=== PATIENT | male | born 1990 | race Caucasian/White ===

== ENCOUNTER 2020-04-23 08:08 | Day surgery (SDC) | payer OTHER, SELFPAY ==
[2020-04-21 08:36] VITALS: BMI 22.1
[2020-04-23 08:28] VITALS: BP 106/98; PULSE 55; RESP 18; TEMP 36.8; O2SAT 98
[2020-04-23] MEDS: sodium chloride 0.9% 1,000 ML 30 ML IV (08:40)
--- NOTE | 2020-04-23 09:24 | ANES.PREANE2 ---
Pre-Anesthetic Assessment Pre-Anesthetic Assessment: Height/Weight: Height 1.73 m Weight 66.224 kg Temp Pulse Resp BP Pulse Ox 98.3 F 55 L 18 106/98 98 04/23/20 08:28 04/23/20 08:28 04/23/20 08:28 04/23/20 08:28 04/23/20 08:28 Preop Diagnosis: Familial colon polyposis Proposed Procedure: Operation Date: 04/23/20 09:30 Proposed Procedures p Sigmoidoscopy/flex 21307 D12.6(Not Applicable) - Chi Agustin MD Last intake: Intake Last Liquid Date 04/22/20 Last Liquid Time 21:00 Last Solid Date 04/21/20 Social: Social History: Tobacco and No alcohol Exam: Pre-Anes Outpt Exam: alert, oriented x 3, clear to auscultation bilaterally and regular rate & rhythm Airway: Submandibular: WNL Cervical ROM: WNL MP: 2 Dentition: Other (poor dentation, tongue ring) History/ROS: No significant history except as noted Pulmonary: Pulmonary: Asthma (mild) CV/HEM: CV/HEM: None reported : : None reported Hepatic: Hepatic: None reported GI: GI: None reported Metabolic: Metabolic: None reported Musc/skel: Musc/skel: OA/DJD Neuropsych: Neuropsych: None reported Anesthetic Plan: ASA status: 2 Anesthesia: Anesthesia Evaluation and MAC Risk of > 500 ml blood loss (7ml/kg in children): No Meds/Allergies Current Medications: Current Medications Generic Name Dose Route Start Last Admin Trade Name Freq PRN Reason Stop Dose Admin Sodium Chloride 1,000 mls @ 30 ml s/hr 04/23/20 08:30 04/23/20 08:40 Sodium Chloride 0.9% IV 30 mls/hr .Q24H RISHI Administration PFSH Anesthesia PFSH: Medical History Asthma Familial polyposis Genital warts History of colon polyps Surgical History H/O colonoscopy History of knee surgery Family History Other Polyposis of colon Denies family history of Anesthesia complication Bleeding disorder Social History Smoking and tobacco status: current every day smoker Alcohol intake: never Data Anesthesia Cardiac Studies: No Data to Display
--- NOTE | 2020-04-23 09:27 | W.PM.OPSUD ---
Surgery/Procedure H&P Update DATE OF PROCEDURE: April 23, 2020 DATE H&P PERFORMED: 04/09/20 H&P UPDATE INFORMATION: I have reviewed H&P completed within last 30 days, I have examined patient prior to procedure and No changes to prior documentation PREOP DIAGNOSIS: Familial colon polyposis PRIMARY INDICATION FOR PROCEDURE: The same PLANNED PROCEDURE: Operation Date: 04/23/20 09:30 Proposed Procedures p Sigmoidoscopy/flex 20736 D12.6(Not Applicable) - Chi Agustin MD
[2020-04-23 10:13] VITALS: BP 108/66; PULSE 57; RESP 16; TEMP 36.5; O2SAT 97
[2020-04-23 10:28] VITALS: BP 119/69; PULSE 58; RESP 16; TEMP 36.6; O2SAT 98
== END 2020-04-23 10:50 | disposition home or self-care (01) ==
PROVIDERS: PCP Family Medicine; Visit Provider Surgery
PROC: 0DJD8ZZ Inspection of Lower Intestinal Tract, Via Natural or Artificial Opening Endoscopic (ICD-10-PCS; CPT 45330; principal; 2020-04-23 09:30)
DX: Z12.11 Encounter for screening for malignant neoplasm of colon (principal); Z86.010 Personal history of colon polyps; D12.8 Benign neoplasm of rectum; Z79.891 Long term (current) use of opiate analgesic; J45.909 Unspecified asthma, uncomplicated; B07.9 Viral wart, unspecified; F17.210 Nicotine dependence, cigarettes, uncomplicated; M19.90 Unspecified osteoarthritis, unspecified site
CPT/HCPCS: 12345; 45338; 88305; J2704; J7030

== ENCOUNTER 2020-12-15 06:21 | Day surgery (SDC) | payer OTHER, SELFPAY ==
[2020-12-11 13:31] VITALS: BMI 22.0
--- NOTE | 2020-12-15 06:38 | ANES.PREANE2 ---
Pre-Anesthetic Assessment Pre-Anesthetic Assessment: Height/Weight: Height 1.73 m Weight 65.771 kg Preop Diagnosis: Familial colon polyposis Proposed Procedure: Operation Date: 12/15/20 07:45 Proposed Procedures p Flexible Sigmoidoscopy 52433 Z86.010(Not Applicable) - Chi Agustin MD Familial anesthetic complications: None Last intake: NPO 8 hrs Social: Social History: Tobacco and No alcohol Exam: Pre-Anes Outpt Exam: alert, oriented x 3, clear to auscultation bilaterally and regular rate & rhythm Airway: Cervical ROM: WNL MP: 2 Dentition: Chipped and Loose Additional comments: Poor dentition Pulmonary: Pulmonary: Asthma Anesthetic Plan: ASA status: 2 Anesthesia: MAC Risk of > 500 ml blood loss (7ml/kg in children): No PFSH Anesthesia PFSH: Medical History Asthma Familial polyposis Genital warts History of colon polyps Surgical History H/O colonoscopy History of knee surgery Family History Other Polyposis of colon Denies family history of Anesthesia complication Bleeding disorder Social History Smoking and tobacco status: current every day smoker Alcohol intake: never Household members: spouse Marital status: History of recent travel: No Data Anesthesia Cardiac Studies: No Data to Display
[2020-12-15 07:10] VITALS: BP 101/65; PULSE 69; RESP 18; TEMP 36.3; O2SAT 98
[2020-12-15] MEDS: sodium chloride 0.9% 1,000 ML 30 ML IV (07:28)
--- NOTE | 2020-12-15 07:28 | W.PM.OPSUD ---
Surgery/Procedure H&P Update DATE OF PROCEDURE: December 15, 2020 DATE H&P PERFORMED: 12/03/20 H&P UPDATE INFORMATION: I have reviewed H&P completed within last 30 days, I have examined patient prior to procedure and No changes to prior documentation PREOP DIAGNOSIS: Familial polyposis PRIMARY INDICATION FOR PROCEDURE: The same PLANNED PROCEDURE: Operation Date: 12/15/20 07:45 Proposed Procedures p Flexible Sigmoidoscopy 91230 Z86.010(Not Applicable) - Chi Agustin MD
[2020-12-15 08:41] VITALS: BP 109/69; PULSE 63; RESP 18; O2SAT 100
--- NOTE | 2020-12-15 18:56 | ANE.PACU2 ---
Inpatient post-anesthesia follow up: Airway intact: Yes Vital signs: Temperature 97.3 F Pulse Rate 63 Respiratory Rate 18 Blood Pressure 109/69 Pulse Oximetry 100 Oxygen Delivery Me thod Room Air Oxygen Flow Rate Fraction of Inspir ed Oxygen Hydration adequate: Yes Nausea and vomiting: No Pain level: 1 Mental status: Baseline
== END 2020-12-15 08:51 | disposition home or self-care (01) ==
PROVIDERS: PCP Family Medicine; Visit Provider Surgery
PROC: 0DJD8ZZ Inspection of Lower Intestinal Tract, Via Natural or Artificial Opening Endoscopic (ICD-10-PCS; CPT 45330; principal; 2020-12-15 07:45)
DX: Z86.010 Personal history of colon polyps (principal); D12.8 Benign neoplasm of rectum; J45.909 Unspecified asthma, uncomplicated; F17.210 Nicotine dependence, cigarettes, uncomplicated
CPT/HCPCS: 45331; 88305; 96360; J2704; J7030

== ENCOUNTER 2023-01-16 13:46 | Emergency (ER) | payer SELFPAY ==
[2023-01-16 14:04] VITALS: BP 118/71; PULSE 75; TEMP 36.3; O2SAT 99; BMI 22.0
[2023-01-16 14:36] LABS: Urine Appearance Clear (CLEAR); Urine Color Dark Yellow (Yellow)
[2023-01-16 14:37] LABS: Protein Urine Neg (Negative); Specific Gravity, Urine 1.025 (1.005-1.030); pH Urine 5 (5-7)
[2023-01-16 14:38] LABS: Add Urine Culture? No; Add Urine Microscopic? YES; Bacteria Urine TRACE /hpf; Bilirubin Urine Neg (Negative); Blood Urine 2+ (Negative); Glucose Urine UA Norm (Normal); Ketones Urine Negative (Negative); Leukocyte Esterase Urine Negative (Negative); Mucus Urine 2+ /hpf; Nitrate Urine Negative (Negative); Urobilinogen Urine 1 mg/dL (Negative); WBC Urine RARE /hpf (0-5)
--- NOTE | 2023-01-16 14:41 | CTR_ITS ---
PROCEDURE INFORMATION: Exam: CT Abdomen And Pelvis Without Contrast Exam date and time: 01/16/2023 2:57 PM Age: 32 years old Clinical indication: Other: Low back pain; Prior surgery; Surgery type: Colectomy; Additional info: Flank pain TECHNIQUE: Imaging protocol: Computed tomography of the abdomen and pelvis without contrast. Radiation optimization: All CT scans at this facility use at least one of these dose optimization techniques: automated exposure control; mA and/or kV adjustment per patient size (includes targeted exams where dose is matched to clinical indication); or iterative reconstruction. REPORTING DATA: Count of CT and Cardiac NM exams in prior 12 months: This patient has received 0 known CTs and 0 known cardiac nuclear medicine studies in the 12 months prior to the current study. COMPARISON: ES surgery / GI images 02/27/2018 5:45 AM RADIATION DOSE METRICS: Total DLP (mGy-cm): 372.73 FINDINGS: Liver: Normal. No mass. Gallbladder and bile ducts: Normal. No calcified stones. No ductal dilation. Pancreas: Normal. No ductal dilation. Spleen: Normal. No splenomegaly. Adrenal glands: Normal. No mass. Kidneys and ureters: No renal stones. No hydronephrosis. Stomach and bowel: Colectomy changes. No obstruction. No mucosal thickening. Appendix: No evidence of appendicitis. Intraperitoneal space: Unremarkable. No free air. No significant fluid collection. Vasculature: Unremarkable. No abdominal aortic aneurysm. Lymph nodes: Unremarkable. No enlarged lymph nodes. Urinary bladder: Unremarkable as visualized. Reproductive: Unremarkable as visualized. Bones/joints: No acute fracture. Soft tissues: Unremarkable. CT/CT abdomen pelvis con [id number] IMPRESSION: No acute findings.
[2023-01-16 15:15] LABS: Basophils # 0.1 10^3/uL (0.0-0.1); Basophils % 0.5 %; Eosinophils # 0.3 10^3/uL (0.0-0.8); Eosinophils % 2.8 %; Hematocrit 45.7 % (42.0-52.0); Hemoglobin 15.1 g/dL (11.7-16.6); Lymphocytes # 4.5 10^3/uL (0.8-4.8); Lymphocytes % 45.7 %; Mean Corpuscular Hemoglobin 30.3 pg (28.0-34.0); Mean Corpuscular Volume 91.6 fl (80-94); Mean Platelet Volume 10.2 fL (7.4-10.4); Monocytes # 0.9 10^3/uL (0.2-0.9); Monocytes % 9.2 %; Neutrophils # 4.08 10^3/uL (1.8-7.7); Neutrophils % 41.5 %; Nucleated Red Blood Cells % 0 %; Platelet Count 219 10^3/cmm (130-400); Red Blood Count 4.99 10^6/uL (4.1-5.3); White Blood Count 9.8 10^3/uL (4.0-10.0)
--- NOTE | 2023-01-16 15:17 | ED_ITS ---
HPI - Abdominal Pain General: Chief Complaint: Abdominal Pain Stated Complaint: kidney/lower back pain Time Seen by Provider: 01/16/23 15:16 History of Present Illness: Mr. 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 He notes onset of symptoms without known specific provoking event 3 days ago and since that time is persisted. There is radiation to the both sides and occasional radiation to the abdomen though this is more so with movement. 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 Denies known history of kidney stones. No associated GI symptoms. No other specific changes in health, exacerbating, or alleviating factors identified. Onset (ago): day(s) Location: Other Severity: moderate Associated Symptoms: Reports hematuria Review of Systems General: Reports: 10 or more systems reviewed and unremarkable except in HPI and below : Reports: hematuria PFSH ED PFSH: Medical History (Updated 01/24/23 @ 00:01 by MARIA M Moya) Asthma Familial polyposis Genital warts History of colon polyps Surgical History H/O colonoscopy History of knee surgery Family History (Updated 01/18/23 @ 15:46 by Trish Teixeira LPN) Mother No problems noted. Father No problems noted. Other Polyposis of colon Denies family history of Anesthesia complication Bleeding disorder Social History (Updated 01/18/23 @ 15:49 by Trish Teixeira LPN) Smoking and tobacco status: current every day smoker Alcohol intake: current Alcohol intake frequency: few times a month Substance/Drug Use: never Household members: spouse Marital status: Current occupational status: employed History of recent travel: No Physical Exam Const: COMMON NORMALS: alert GENERAL APPEARANCE: cooperative and well developed HENMT: COMMON NORMALS: normocephalic and atraumatic HEAD & SCALP: normocephalic and atraumatic Eye: COMMON NORMALS: conjunctivae normal CONJUNCTIVA: Yes conjunctivae normal SCLERA: sclerae normal Neck/C-Spine: COMMON NORMALS: supple GENERAL: Yes trachea midline Resp: COMMON NORMALS: normal respiratory effort EFFORT & INSPECTION: Yes able to speak in complete sentences Cardio: COMMON NORMALS: regular rate and regular rhythm RATE: regular rate RHYTHM: regular rhythm GI: COMMON NORMALS: Soft to palpation PALPATION: Yes Soft to palpation, Yes Tenderness to palpation present (GI), No Guarding due to palpation present (GI) and No Rigid due to palpation Extremity: GENERAL: Yes normal exam except as noted and No edema Neuro: COMMON NORMALS: moves all extremities SENSORIUM/ORIENTATION: Yes alert and No Orientation impaired Psych: COMMON NORMALS: mental status grossly normal and Normal thought process present THOUGHT PROCESS: Normal thought process present Course Vital Signs: Vital signs: Vital Signs Temperature 97.4 F L 01/16/23 14:04 Pulse Rate 55 L 01/16/23 17:53 Respiratory Rate 99 H 01/16/23 15:37 Blood Pressure 108/65 01/16/23 17:53 Pulse Oximetry 98 01/16/23 17:53 Oxygen Delivery Me thod Room Air 01/16/23 14:04 MDM - Abdominal Pain Medical Decision Making 32-year-old gentleman presenting with back pain/flank plain radiating to lower abdomen. No evidence of acute surgical abdomen and patient is nontoxic on exam. Labs with no hematologic or significant metabolic derangement, transaminitis discussed with patient. Hematuria discussed with patient. CT demonstrates no acute finding. Ultrasound also demonstrates no acute finding. Patient improved with analgesia and muscle relaxer as well as IV fluids. He is able to tolerate p.o. intake. Most likely etiology of patient's symptoms is unclear with hematuria discussed with the patient including need for follow-up. The results of ED evaluation were discussed with the patient including prescriptions and/or symptomatic cares (if applicable) including appropriate and responsible use, followup plan, and return precautions. The patient verbalized understanding and felt safe for discharge. Medical Records I reviewed the patient's medical records. Lab Data I reviewed the patient's lab results. 01/16/23 14:52 01/16/23 14:52 Labs/Radiology: Radiology Impressions Abdomen/Pelvis CT 01/16/23 14:41 IMPRESSION: No acute findings. Scrotum Ultrasound 01/16/23 15:39 IMPRESSION: No acute findings. Laboratory Results WBC 9.8 10^3/uL (4.0-10.0) 01/16/23 14:52 RBC 4.99 10^6/uL (4.1-5.3) 01/16/23 14:52 Hgb 15.1 g/dL (11.7-16.6) 01/16/23 14:52 Hct 45.7 % (42.0-52.0) 01/16/23 14:52 MCV 91.6 fl (80-94) 01/16/23 14:52 MCH 30.3 pg (28.0-34.0) 01/16/23 14:52 MCHC 33.0 g/dL (30.0-36.0) 01/16/23 14:52 RDW 13.0 % (12.1-15.1) 01/16/23 14:52 Plt Count 219 10^3/cmm (130-400) 01/16/23 14:52 MPV 10.2 fL (7.4-10.4) 01/16/23 14:52 Neut % (Auto) 41.5 % 01/16/23 14:52 Lymph % (Auto) 45.7 % 01/16/23 14:52 [place] % (Auto) 9.2 % 01/16/23 14:52 Eos % (Auto) 2.8 % 01/16/23 14:52 Baso % (Auto) 0.5 % 01/16/23 14:52 Neut # (Auto) 4.08 10^3/uL (1.8-7.7) 01/16/23 14:52 Lymph # (Auto) 4.5 10^3/uL (0.8-4.8) 01/16/23 14:52 [place] # (Auto) 0.9 10^3/uL (0.2-0.9) 01/16/23 14:52 Eos # (Auto) 0.3 10^3/uL (0.0-0.8) 01/16/23 14:52 Baso # (Auto) 0.1 10^3/uL (0.0-0.1) 01/16/23 14:52 Nucleated RBC % (auto) 0 % 01/16/23 14:52 Nucleated RBCs # 0.0 /100WBC 01/16/23 14:52 Sodium 129 mmol/L (136-145) L 01/16/23 14:52 Potassium 3.8 mmol/L (3.5-5.1) 01/16/23 14:52 Chloride 98 mmol/L (98-107) 01/16/23 14:52 Carbon Dioxide 25 mmol/L (22-29) 01/16/23 14:52 Anion Gap 9.8 (5-19) 01/16/23 14:52 BUN 17 mg/dL (6-20) 01/16/23 14:52 Creatinine 0.7 mg/dL (0.7-1.2) 01/16/23 14:52 GFR Calculation 129.1 mL/min (90-130) 01/16/23 14:52 Glucose 93 mg/dL (65-115) 01/16/23 14:52 Calculated Osmolality 269 mOsm/kg (285-295) L 01/16/23 14:52 Calcium 8.9 mg/dL (8.5-10.5) 01/16/23 14:52 Total Bilirubin 0.2 mg/dL (0.15-1.2) 01/16/23 14:52 AST 58 U/L (0-40) H 01/16/23 14:52 ALT 115 U/L (0-41) H 01/16/23 14:52 Alkaline Phosphatase 77 U/L (40-130) 01/16/23 14:52 Total Protein 7.5 g/dL (6.6-8.7) 01/16/23 14:52 Albumin 4.2 g/dL (3.5-5.2) 01/16/23 14:52 Globulin 3.3 g/dL (1.3-4.6) 01/16/23 14:52 Lipase 21 U/L (13-60) 01/16/23 14:52 Urine Color Dark yellow (Yellow) 01/16/23 14:15 Urine Appearance Clear (CLEAR) 01/16/23 14:15 Urine pH 5 (5-7) 01/16/23 14:15 Ur Specific [place] 1.025 (1.005-1.030) 01/16/23 14:15 Urine Protein Neg (Negative) 01/16/23 14:15 Urine Glucose (UA) Norm (Normal) 01/16/23 14:15 Urine Ketones Negative (Negative) 01/16/23 14:15 Urine Blood 2+ (Negative) H 01/16/23 14:15 Urine Nitrate Negative (Negative) 01/16/23 14:15 Urine Bilirubin Neg (Negative) 01/16/23 14:15 Urine Urobilinogen 1 mg/dL (Negative) H 01/16/23 14:15 Ur Leukocyte Esterase Negative (Negative) 01/16/23 14:15 Urine RBC 5-10 /hpf (0-2) H 01/16/23 14:15 Urine WBC Rare /hpf (0-5) 01/16/23 14:15 Ur Squamous Epith Cells None /hpf (0-5) 01/16/23 14:15 Amorphous Sediment Not Reportable 01/16/23 14:15 Urine Bacteria Trace /hpf (NONE) 01/16/23 14:15 Urine Mucus 2+ /hpf 01/16/23 14:15 Discharge Plan Discharge Patient Disposition: Home Clinical Impression: Low back pain, Hematuria Condition: Stable Prescriptions: New oxycodone 5 mg tablet 5 mg PO Q6H PRN (Reason: pain) Qty: 10 0RF No Action gabapentin 300 mg capsule 300 mg PO TID PRN (Reason: Pain) EpiPen 2-Elan 0.3 mg/0.3 mL Auto-Injector See Rx Instructions .ROUTE .COMPLEX Rx Instructions: DIRECTED NEEDED oxycodone 10 mg tablet 10 mg PO QID PRN (Reason: Pain) Discharge Orders: Discharge ED (Routine); Ordered 01/16/23 Ordered By: Benigno Smith Referrals: Ivanna Irwin DO [Primary Care Provider] - Discharge Diet: Advance as tolerated and Clear Liquid Discharge Activity: Increase activity as tolerated Patient Instructions: Hematuria (ED), Acute Low Back Pain (ED), Opioid Safety Activity Restrictions/Additional Instructions: Thank you for visiting the emergency department. You were seen and evaluated for low back pain. The exact cause of your symptoms is unclear though does not need hospitalization at this time. I will prescribe extra oxycodone, as discussed stagger this in between your typical home doses. Use it cautiously as opioids can cause complications as discussed. You may use [id number] medications such as acetaminophen and ibuprofen for pain however please do not exceed the daily recommended dosage as listed on the packaging and please keep in mind that many namebrand medications contain the same active ingredients. Please avoid these medications if previously instructed to do so by another physician due to other underlying medical condition. Please follow-up with your primary care provider. I will message case management for follow-up with urology given persistent microscopic hematuria. Return to the emergency department for anything that you are concerned about and feel needs emergency department evaluation Coding Level of Care Code ED Field Laboratory Operator for Elly Mejia
[2023-01-16] MEDS: diazePAM 2 mg Tablet PO (15:36)
[2023-01-16 15:37] VITALS: RESP 99; O2SAT 99
[2023-01-16 15:37] LABS: Alanine Aminotransferase 115 U/L (0-41); Albumin Level 4.2 g/dL (3.5-5.2); Alkaline Phosphatase 77 U/L (40-130); Anion Gap 9.8 (5-19); Aspartate Amino Transferase 58 U/L (0-40); Blood Urea Nitrogen 17 mg/dL (6-20); Calcium 8.9 mg/dL (8.5-10.5); Carbon Dioxide 25 mmol/L (22-29); Chloride 98 mmol/L (98-107); Globulin 3.3 g/dL (1.3-4.6); Glomerular Filtration Rate 129.1 mL/min (90-130); Glucose 93 mg/dL (65-115); Lipase 21 U/L (13-60); Osmolality Calculated 269 mOsm/kg (285-295); Potassium 3.8 mmol/L (3.5-5.1); Sodium 129 mmol/L (136-145); Total Bilirubin 0.2 mg/dL (0.15-1.2); Total Protein 7.5 g/dL (6.6-8.7)
[2023-01-16] MEDS: fentaNYL 50 mcg/mL INJ 2mL IVP (15:37)
--- NOTE | 2023-01-16 15:39 | USR_ITS ---
PROCEDURE INFORMATION: Exam: US Scrotum Exam date and time: 01/16/2023 4:43 PM Age: 32 years old Clinical indication: Scrotum pain and other: Back pain; Additional info: Hematuria, flank pain, pain with urination TECHNIQUE: Imaging protocol: Real-time ultrasound of the scrotum and contents with color Doppler and image documentation. COMPARISON: CT abdomen pelvis con [id number] 01/16/2023 2:57 PM FINDINGS: Right testicle: Right testicle measures 4.4 x 2.3 x 3.0 cm. No mass. No torsion. Normal vascular flow. Left testicle: Left testicle measures 4.6 x 2.1 x 2.9 cm. No mass. No torsion. Normal vascular flow. Epididymides: Normal. Scrotum/soft tissues: Normal. US/US scrotum [id number] IMPRESSION: No acute findings.
[2023-01-16] MEDS: sodium chloride 0.9% 1,000 ML 999 ML IV (15:59)
[2023-01-16 16:07] VITALS: BP 122/66; PULSE 64; O2SAT 97
[2023-01-16 17:00] VITALS: BP 109/69; PULSE 59; O2SAT 99
[2023-01-16] MEDS: HYDROmorphone 1 mg/mL INJ 1 mL 0.5 MG IVP (17:20)
[2023-01-16 17:53] VITALS: BP 108/65; PULSE 55; O2SAT 98
--- NOTE | 2023-01-17 10:31 | DCPLANNER ---
Addendum entered by Sakshi Laguerre 01/20/23 09:05: Patient had a follow up appointment scheduled with urology - patient did attend appointment. Addendum entered by Sakshi Laguerre 01/17/23 15:12: Patient has a follow up appointment scheduled for Wednesday, January 18, 2023 at 4:[address] Silva at urology. Original Note: senior manager quality assurance had message to schedule a follow up appointment for patient with urology. senior manager quality assurance sent patients information to the front office staff at urology. Patients information will be printed and reviewed. Clinic will call patient with appointment information.
--- NOTE | 2023-01-17 17:06 | PC.NURSE ---
PHARMACY CALLED THIS NURSE FOR CONFIRMATION OF PT NARCOTIC RX. DR. TRIVEDI GAVE VERBAL INSTRUCTION TO FILL RX
== END 2023-01-16 17:54 | disposition home or self-care (01) ==
PROVIDERS: Emergency Medicine; Emergency Provider Emergency Medicine; PCP Family Medicine
DX: M54.50 Low back pain, unspecified (principal); R31.9 Hematuria, unspecified; F17.210 Nicotine dependence, cigarettes, uncomplicated
CPT/HCPCS: 36415; 74176; 76870; 80053; 81001; 83690; 85025; 96361; 96374; 96375; 99285; J1170; J3010; J7030

== ENCOUNTER → 2023-01-18 15:43 | Outpatient (BNVA) | payer SELFPAY | PROVIDERS: PCP Family Medicine; Visit Provider Urology | DX: R31.0 Gross hematuria (principal) | CPT/HCPCS: 81003 ==

== ENCOUNTER 2024-10-08 11:12 | Day surgery (SDC) | payer OTHER, SELFPAY ==
[2024-10-08 11:32] VITALS: BP 96/59; PULSE 51; RESP 18; TEMP 36.9; O2SAT 98; BMI 22.8
[2024-10-08] MEDS: sodium chloride 0.9% 500 ML 15 ML IV (11:45)
--- NOTE | 2024-10-08 11:51 | ANES.PREANE2 ---
Pre-Anesthetic Assessment Height/Weight: Height 1.73 m Weight 68.039 kg Temp Pulse Resp BP Pulse Ox O2 Del Method 98.4 F 51 L 18 96/59 98 Room Air 10/08/24 11:32 10/08/24 11:32 10/08/24 11:32 10/08/24 11:32 10/08/24 11:32 10/08/24 11:32 Preop Diagnosis: GERD Familial Multiple Polyposis Syndrome Operation Date: 10/08/24 12:15 Proposed Procedures p EGD 86463, 08973, G0105, R12, D12.6(Not Applicable) - Blake Titus MD s Colonoscopy(Not Applicable) - Blake Titus MD Familial anesthetic complications: none Was Beta Zbigniew taken within 24 hours: N/A Last intake: Intake Last Liquid Date 10/07/24 Last Liquid Time 22:00 Last Solid Date 10/06/24 Last Solid Time 10:00 Social Tobacco and No alcohol Exam alert, oriented x 3, clear to auscultation bilaterally and regular rate & rhythm Airway Submandibular: within normal limits Cervical ROM: within normal limits Mallampati: Class II Dentition: other Comments: Comments: multiple missing teeth poor dentition Pulmonary Asthma CV/HEM None reported None reported Hepatic None reported GI Gastroesophageal Reflux Disease Metabolic None reported Musc/skel Osteoarthritis/DJD (takes oxycodone for bone on bone pain in bilateral knees.) Neuropsych None reported Anesthetic Plan ASA status: 2 Anesthesia: MAC Medications/Allergies Home Medications Medication Instructions Recorded Confirmed Last Taken Type gabapentin 300 mg capsule 300 mg PO TID PRN Pain 04/03/20 10/05/24 10/07/24 History epinephrine 0.3 mg/0.3 mL See Rx Instructions .Route .COMPLEX 01/16/23 10/05/24 Unknown History injection, auto-injector (EpiPen 2-Elan) oxycodone 10 mg tablet 10 mg PO QID PRN Pain 01/16/23 10/05/24 10/07/24 History ondansetron 8 mg disintegrating 8 mg PO Q8H PRN nausea and 08/02/24 10/05/24 Unknown Rx tablet vomiting #3 tabs Allergies Allergy/AdvReac Type Severity Reaction Status Date / Time bee venom protein (honey bee) Allergy ALGY-Anaphy Verified 10/08/24 11:31 laxis tramadol AdvReac ADR-Itching Verified 10/08/24 11:31 Current Medications Generic Name Dose Route Start Last Admin Trade Name Freq PRN Reason Stop Dose Admin Sodium Chloride 500 mls @ 15 mls/hr 10/08/24 11:20 10/08/24 11:45 Sodium Chloride 0.9% IV 10/09/24 11:19 15 mls/hr .Q24H PRN Administration COLONOSCOPY FLUIDS PFSH Anesthesia Medical History History of colon polyps Familial polyposis Genital warts Asthma Surgical History H/O colonoscopy History of knee surgery Family History (Updated 08/02/24 @ 14:[address]) Mother Colon cancer Father No problems noted. Brother Colon cancer Other Polyposis of colon Denies family history of Anesthesia complication Bleeding disorder Social History Smoking and tobacco/nicotine status: current every day tobacco/nicotine user Alcohol intake: current Alcohol intake frequency: few times a month Substance/Drug Use: never Household members: spouse Marital status: Current occupational status: employed Data Anesthesia Cardiac Studies: No Data to Display
--- NOTE | 2024-10-08 11:53 | W.PM.OPSFHP ---
Same Day Surgery H&P Indication for Procedure/HPI DATE OF PROCEDURE: October 08, 2024 CHIEF COMPLAINT/INDICATIONFOR SURGICAL PROCEDURE: hematochezia, heartburn PREOP DIAGNOSIS: hematochezia, heartburn PLANNED PROCEDURE: Operation Date: 10/08/24 12:15 Proposed Procedures p EGD 82465, 32362, G0105, R12, D12.6(Not Applicable) - Blaek Titus MD s Colonoscopy(Not Applicable) - Blake Titus MD Medications/Allergies* Home Medications Medication Instructions Recorded Confirmed Type gabapentin 300 mg capsule 300 mg PO TID PRN Pain 04/03/20 10/05/24 History epinephrine 0.3 mg/0.3 mL See Rx Instructions .Route .COMPLEX 01/16/23 10/05/24 History injection, auto-injector (EpiPen 2-Elan) oxycodone 10 mg tablet 10 mg PO QID PRN Pain 01/16/23 10/05/24 History Allergies/Adverse Reactions Allergy/AdvReac Type Severity Reaction Status Date / Time bee venom protein (honey bee) Allergy ALGY-Anaphy Verified 10/08/24 11:31 laxis tramadol AdvReac ADR-Itching Verified 10/08/24 11:31 Current Medications: Generic Name Dose Route Start Last Admin Trade Name Freq PRN Reason Stop Dose Admin Sodium Chloride 500 mls @ 15 mls/hr 10/08/24 11:20 10/08/24 11:45 Sodium Chloride 0.9% IV 10/09/24 11:19 15 mls/hr .Q24H PRN Administration COLONOSCOPY FLUIDS Pertinent History/Comorbid Conditions* Medical History (Updated 01/24/23 @ 00:01 by MARIA M Moya) History of colon polyps Familial polyposis Genital warts Asthma Surgical History (Updated 04/10/20 @ 16:21 by Chi Agustin MD) H/O colonoscopy History of knee surgery Family History (Updated 08/02/24 @ 14:26 by BRIE Floyd) Polyposis of colon Colon cancer Mother Brother Denies family history of Anesthesia complication Bleeding disorder Social History Smoking and tobacco/nicotine status: current every day tobacco/nicotine user Alcohol intake: current Alcohol intake frequency: few times a month Substance/Drug Use: never Household members: spouse Marital status: Current occupational status: employed Pertinent Exam Findings alert, oriented x 3, clear to auscultation bilaterally, regular rate & rhythm and procedure specific exam findings abdomen soft, nt, nd Recommendations Surgery/Procedure today Coding Level of Care Code Acute Code for Chg Fwd
[2024-10-08 12:41] VITALS: BP 91/51; PULSE 46; RESP 18; TEMP 36.3; O2SAT 97
[2024-10-08 12:52] VITALS: BP 94/50; PULSE 49; RESP 18; TEMP 36.2; O2SAT 99
--- NOTE | 2024-10-08 13:10 | ANE.PACU2 ---
Inpatient post-anesthesia follow up: Airway intact: Yes Vital signs: Temperature 97.2 F Pulse Rate 49 Respiratory Rate 18 Blood Pressure 94/50 Pulse Oximetry 99 Oxygen Delivery Me thod Room Air Oxygen Flow Rate Fraction of Inspir ed Oxygen Hydration adequate: Yes Nausea and vomiting: No Pain level: 1 Mental status: Baseline
== END 2024-10-08 13:10 | disposition home or self-care (01) ==
PROVIDERS: PCP Family Medicine; Visit Provider Student in an Organized Health Care Education/Training Program
PROC: 0DJ08ZZ Inspection of Upper Intestinal Tract, Via Natural or Artificial Opening Endoscopic (ICD-10-PCS; principal; 2024-10-08 12:15)
PROC: 0DJD8ZZ Inspection of Lower Intestinal Tract, Via Natural or Artificial Opening Endoscopic (ICD-10-PCS; CPT 45378; 2024-10-08 12:15)
DX: Z12.11 Encounter for screening for malignant neoplasm of colon (principal); R12 Heartburn; K29.50 Unspecified chronic gastritis without bleeding; K29.80 Duodenitis without bleeding; D12.8 Benign neoplasm of rectum; K29.71 Gastritis, unspecified, with bleeding; K21.9 Gastro-esophageal reflux disease without esophagitis; M17.0 Bilateral primary osteoarthritis of knee
CPT/HCPCS: 43239; 45385; 88305; 88342; J2704; J7040